=== PATIENT | female | born 1980 | race American Indian/Alaskan Native ===

== ENCOUNTER 2016-09-13 12:56 | Emergency (ER) | payer OTHER ==
[2016-09-13 13:19] VITALS: BP 130/92
[2016-09-13] MEDS ORDERED: Sodium Chloride 0.9% 10 ML Syringe FLUSH PRN (13:35)
--- NOTE | 2016-09-13 14:48 | US ---
First trimester obstetrical ultrasound: Multiple real-time images were obtained transvaginally. Dates: LMP: ? Current ultrasound: JAQUELINE 05/04/17, gestational age 6 weeks 5 days Single intrauterine gestation is seen. Amniotic fluid volume is normal. pole is seen but no heart activity is identified. Maternal ovaries are felt to be unremarkable. No subchorionic hemorrhage is seen at this time. Measurements: Gestational sac: 1.35 cm - 5 weeks 4 days [place]-rump length: 0.75 cm - 6 weeks 5 days Impression: 1. Single intrauterine gestation. Dates as noted above. 2. No heart activity is seen. Heart activity should be seen by this time and findings most likely due to nonviable although a repeat study recommended in 11 days if patient does not miscarry to confirm nonviable . Diagnostic code #3
--- NOTE | 2016-09-13 15:23 | EDM.PDOC ---
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 She is 8 weeks gestation. She is and AB2. She is considered high risk because of not enough amniotic fluid with her last pregnancies. She had some clots today when she was in the shower. She had some HCGs that were going down and a questionable US. Her OB doctor is Dr Mcknight in [place]. She denies fever, chills, cough, nausea, vomiting or dysuria. 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 Social & Family History - Tobacco Use Smoking Status *Q: Never Smoker - Caffeine Use Caffeine Use: Reports: Coffee - Recreational Drug Use Recreational Drug Use: No ED ROS GENERAL - Review of Systems Review Of Systems: See Below Constitutional: Reports: No Symptoms HEENT: Reports: No Symptoms Respiratory: Reports: No Symptoms Cardiovascular: Reports: No Symptoms Endocrine: Reports: No Symptoms GI/Abdominal: Reports: Abdominal Pain : Reports: Other (Bleeding and cramping) ED EXAM, RENAL/ - Physical Exam Exam: See Below Exam Limited By: No Limitations General Appearance: Alert, No Apparent Distress Ears: Normal External Exam Nose: Normal Inspection Head: Atraumatic, Normocephalic Neck: Normal Inspection Respiratory/Chest: No Respiratory Distress, Lungs Clear, Normal Breath Sounds Cardiovascular: Regular Rate, Rhythm, No Edema, No Murmur GI/Abdominal: Soft, Non-Tender, No Organomegaly, No Mass (Female) Exam: Other (Cervical os is closed. There is mild amount of dark blood.) Extremities: Normal Inspection Course - Vital Signs Last Recorded V/S: Last Vital Signs Temp 97.2 F 09/13/16 13:16 Pulse 60 09/13/16 13:16 Resp 16 09/13/16 13:16 BP 130/92 H 09/13/16 13:16 Pulse Ox 98 09/13/16 13:16 - Orders/Labs/Meds Orders: Active Orders 24 hr Category Date Time Status Peripheral IV Care [RC] . DIRECTED Care 09/13/16 13:35 Active ABO/RH TYPE [BBK] Stat Lab 09/13/16 13:45 Results PATIENT RETYPE [BBK] Stat Lab 09/13/16 13:45 Results Sodium Chloride 0.9% [Saline Flush] Med 09/13/16 13:35 Active 10 ml FLUSH ASDIRECTED PRN Peripheral IV Insertion Adult [OM.PC] Stat Oth 09/13/16 13:35 Ordered Medication Orders Sodium Chloride (Saline Flush) 10 ml FLUSH ASDIRECTED PRN PRN Reason: Keep Vein Open Last Admin: 09/13/16 14:36 Dose: 10 ml Labs: Laboratory Tests 09/13/16 09/13/16 09/13/16 Range/Units 13:45 13:45 13:45 WBC 6.10 (3.98-10.04) K/mm3 RBC 4.63 (3.98-5.22) M/mm3 Hgb 14.0 (11.2-15.7) gm/L Hct 42.1 (34.1-44.9) % MCV 90.9 (79.4-94.8) fl MCH 30.2 (25.6-32.2) pg MCHC 33.3 (32.2-35.5) g/dl RDW Std Deviation 38.8 (36.4-46.3) fL Plt Count 363 (182-369) K/mm3 MPV 9.2 L (9.4-12.3) fl Neut % (Auto) 63.2 (34.0-71.1) % Lymph % (Auto) 22.6 (19.3-51.7) % [place] % (Auto) 10.2 (4.7-12.5) % Eos % (Auto) 3.6 (0.7-5.8) Baso % (Auto) 0.2 (0.1-1.2) % Neut # (Auto) 3.86 (1.56-6.13) K/mm3 Lymph # (Auto) 1.38 (1.18-3.74) K/mm3 [place] # (Auto) 0.62 H (0.24-0.36) K/mm3 Eos # (Auto) 0.22 (0.04-0.36) K/mm3 Baso # (Auto) 0.01 (0.01-0.08) K/mm3 HCG, Quant 8595.0 mIU/mL Blood Type O POSITIVE Meds: Medications Generic Name Dose Route Start Last Admin Trade Name Freq PRN Reason Stop Dose Admin Sodium Chloride 10 ml 09/13/16 13:35 09/13/16 14:36 Saline Flush FLUSH 10 ml ASDIRECTED PRN Administration Keep Vein Open - Re-Assessments/Exams Free Text/Narrative Re-Assessment/Exam: 09/13/16 15:21 I ordered an IV saline lock, labs, and an US. Her CBC looks good. Her quant HCG is 8595. She is O positive. Her US shows single intrauterine gestation. Dates are 6 weeks 5 days. No heart activity is seen. Heart activity should be seen by this time and findings most likely due to nonviable although a repeat study recommended in 11 days if patient does not miscarry to confirm nonviable . 09/13/16 15:41 Her vaginal exam shows a closed os. There is mild amount of dark blood. Departure - Departure Time of Disposition: 15:45 Disposition: Home, Self-Care 01 Condition: good Clinical Impression: Incomplete - Discharge Information Referrals: Eugene Mcknight MD [Primary Care Provider] - 1 Week Forms: ED Department Discharge Additional Instructions: There is no heart beat at this time. It appears you are having a miscarrage. Follow up this week with Dr Mcknight. Please return if you are worse. - My Orders Last 24 Hours: My Active Orders 09/13/16 13:35 Peripheral IV Care [RC] . DIRECTED Sodium Chloride 0.9% [Saline Flush] 10 ml FLUSH ASDIRECTED PRN Peripheral IV Insertion Adult [OM.PC] Stat 09/13/16 13:45 ABO/RH TYPE [BBK] Stat PATIENT RETYPE [BBK] Stat - Assessment/Plan Last 24 Hours: My Active Orders 09/13/16 13:35 Peripheral IV Care [RC] . DIRECTED Sodium Chloride 0.9% [Saline Flush] 10 ml FLUSH ASDIRECTED PRN Peripheral IV Insertion Adult [OM.PC] Stat 09/13/16 13:45 ABO/RH TYPE [BBK] Stat PATIENT RETYPE [BBK] Stat
== END 2016-09-13 15:50 | disposition home or self-care (01) ==
LOC: JD.ED 12:56
DX: O03.4 Incomplete spontaneous abortion without complication (principal); I10 Essential (primary) hypertension; Z3A.01 Less than 8 weeks gestation of pregnancy
CPT/HCPCS: 36415; 76817; 84702; 85025; 86900; 86901; 99284; J7050; 99283

== ENCOUNTER 2020-10-26 11:48 | Emergency (ER) | payer OTHER ==
[2020-10-26 12:00] VITALS: BP 128/78; PULSE 67
[2020-10-26] MEDS ORDERED: Ondansetron 4 MG/2 ML SDV IVPUSH ONE (12:14)
[2020-10-26] MEDS ORDERED: Sodium Chloride 0.9% 10 ML Syringe FLUSH PRN ×2 (12:14→13:34)
[2020-10-26] MEDS ORDERED: Sodium Chloride 0.9% 1,000 ML IV SCH (12:15)
--- NOTE | 2020-10-26 12:21 | EDM.PDOC ---
ED HPI GENERAL MEDICAL PROBLEM - General Chief Complaint: Abdominal Pain Stated Complaint: LOW RT ABDOMINAL PAIN Time Seen by Provider: 10/26/20 12:04 Source of Information: Reports: Patient, RN Notes Reviewed History Limitations: Reports: No Limitations - History of Present Illness INITIAL COMMENTS - FREE TEXT/NARRATIVE: Patient is a 40-year-old female who presents to the ER for the evaluation of her right lower quadrant pain. Patient states that this started yesterday, seems to kind to come and go it is sharp and stabbing when the pain is at its worst, she does not really know anything that makes it better or worse. She took some Tylenol yesterday as she felt somewhat feverish, and states that this helped a little bit. She is not had pain like this before in the past. She still retains her appendix and gallbladder. She has had a history of a tummy tuck, and has a gastric balloon that was placed by a provider in [facility]. Also states that she had some blood in her stool yesterday, but it was bright red. She did not notice any sort of color to her fecal matter for today's purposes. She has not had any nausea/vomiting, cough or shortness of breath, or any issues with urination, furthermore no vaginal issues like bleeding or discharge. She does not think she can be as she does have an IUD. Primary care provider is Katya Valencia. She states that when she got up from bed this morning, when she stood up straight, this seemed to cause more pain. Pain started in her right lower quadrant, and has not radiated anywhere else. 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: , 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 Endocrine/Metabolic History: Reports: Obesity/BMI 30+ - Past Surgical History HEENT Surgical History: Reports: Tonsillectomy GI Surgical History: Reports: Other (See Below) Other GI Surgeries/Procedures: Tummy Tuck, Gastric Balloon Musculoskeletal Surgical History: Reports: Shoulder Surgery Social & Family History - Tobacco Use Tobacco Use Status *Q: Never Tobacco User - Caffeine Use Caffeine Use: Reports: Coffee - Recreational Drug Use Recreational Drug Use: No - Living Situation & Occupation Living situation: Reports: , with Spouse, with Family (5 kids) Occupation: Unemployed ED ROS GENERAL - Review of Systems Review Of Systems: Comprehensive ROS is negative, except as noted in HPI. ED EXAM, GI/ABD - Physical Exam Exam: See Below Exam Limited By: No Limitations General Appearance: Alert, WD/WN, No Apparent Distress Respiratory/Chest: No Respiratory Distress, Lungs Clear, Normal Breath Sounds, No Accessory Muscle Use, Chest Non-Tender Cardiovascular: Normal Peripheral Pulses, Regular Rate, Rhythm, No Edema GI/Abdominal Exam: Normal Bowel Sounds, Soft, No Distention, No Mass, Tender (RLQ mainly with direct palpation; pt states pain is worse when she stands straight up). No: Rigid, Rebound Extremities: Normal Inspection, Normal Capillary Refill Neurological: Alert, Oriented, Normal Cognition, No Motor/Sensory Deficits Psychiatric: Normal Affect, Normal Mood Skin Exam: Warm, Dry, Intact, Normal Color, No Rash Course - Vital Signs Last Recorded V/S: Last Vital Signs Temp 97.4 F 10/26/20 11:57 Pulse 67 10/26/20 11:57 Resp 16 10/26/20 11:57 BP 128/78 10/26/20 11:57 Pulse Ox 98 10/26/20 11:57 - Orders/Labs/Meds Orders: Active Orders 24 hr Category Date Time Status Peripheral IV Care [RC] . DIRECTED Care 10/26/20 12:15 Ordered Abdomen Pelvis w Cont [CT] Stat Exams 10/26/20 12:14 Ordered Sodium Chloride 0.9% [Normal Saline] 1,000 ml Med 10/26/20 12:15 Ordered IV ASDIRECTED Sodium Chloride 0.9% [Saline Flush] Med 10/26/20 12:14 Ordered 10 ml FLUSH ASDIRECTED PRN Sodium Chloride 0.9% [Saline Flush] Med 10/26/20 13:34 Active 10 ml FLUSH ONETIME PRN Peripheral IV Insertion Adult [OM.PC] Stat Oth 10/26/20 12:14 Ordered Medication Orders Sodium Chloride (Normal Saline) 1,000 mls @ 999 mls/hr IV ASDIRECTED JAME Last Admin: 10/26/20 12:33 Dose: 999 mls/hr Documented by: EZEKIEL Sodium Chloride (Sodium Chloride 0.9% 10 Ml Syringe) 10 ml FLUSH ASDIRECTED PRN PRN Reason: Keep Vein Open Last Admin: 10/26/20 12:33 Dose: 10 ml Documented by: EZEKIEL Sodium Chloride (Sodium Chloride 0.9% 10 Ml Syringe) 10 ml FLUSH ONETIME PRN PRN Reason: IV FLUSH Last Admin: 10/26/20 13:42 Dose: 10 ml Documented by: EYAD Labs: Laboratory Tests 10/26/20 10/26/20 10/26/20 Range/Units 11:59 11:59 11:59 WBC 8.86 (3.98-10.04) K/mm3 RBC 4.56 (3.98-5.22) M/mm3 Hgb 14.2 (11.2-15.7) gm/dl Hct 41.9 (34.1-44.9) % MCV 91.9 (79.4-94.8) fl MCH 31.1 (25.6-32.2) pg MCHC 33.9 (32.2-35.5) g/dl RDW Std Deviation 47.6 H (36.4-46.3) fL Plt Count 323 (182-369) K/mm3 MPV 9.3 L (9.4-12.3) fl Neut % (Auto) 70.9 (34.0-71.1) % Lymph % (Auto) 20.1 (19.3-51.7) % [place] % (Auto) 6.9 (4.7-12.5) % Eos % (Auto) 1.9 (0.7-5.8) Baso % (Auto) 0.1 (0.1-1.2) % Neut # (Auto) 6.28 H (1.56-6.13) K/mm3 Lymph # (Auto) 1.78 (1.18-3.74) K/mm3 [place] # (Auto) 0.61 H (0.24-0.36) K/mm3 Eos # (Auto) 0.17 (0.04-0.36) K/mm3 Baso # (Auto) 0.01 (0.01-0.08) K/mm3 Sodium 143 (136-145) mEq/L Potassium 4.0 (3.5-5.1) mEq/L Chloride 109 H (98-107) mEq/L Carbon Dioxide 26 (21-32) mEq/L Anion Gap 12.0 (5-15) BUN 13 (7-18) mg/dL Creatinine 0.8 (0.55-1.02) mg/dL Est Cr Clr Drug Dosing 92.72 mL/min Estimated GFR (MDRD) > 60 (>60) mL/min BUN/Creatinine Ratio 16.3 (14-18) Glucose 97 (70-99) mg/dL Calcium 8.7 (8.5-10.1) mg/dL Total Bilirubin 0.2 (0.2-1.0) mg/dL AST 30 (15-37) U/L ALT 67 H (14-59) U/L Alkaline Phosphatase 93 (46-116) U/L C-Reactive Protein <0.2 (<1.0) mg/dL Total Protein 6.8 (6.4-8.2) g/dl Albumin 3.9 (3.4-5.0) g/dl Globulin 2.9 gm/dL Albumin/Globulin Ratio 1.3 (1-2) Lipase 111 (73-393) U/L Urine Color (Yellow) Urine Appearance (Clear) Urine pH (5.0-8.0) Ur Specific [place] (1.005-1.030) Urine Protein (Negative) Urine Glucose (UA) (Negative) Urine Ketones (Negative) Urine Occult Blood (Negative) Urine Nitrite (Negative) Urine Bilirubin (Negative) Urine Urobilinogen (0.2-1.0) Ur Leukocyte Esterase (Negative) Urine RBC (0-5) /hpf Urine WBC (0-5) /hpf Ur Squamous Epith Cells (0-5) /hpf Urine Bacteria (FEW) /hpf Urine Mucus (FEW) /hpf Urine HCG, Qual Negative (NEGATIVE) 10/26/20 Range/Units 13:20 WBC (3.98-10.04) K/mm3 RBC (3.98-5.22) M/mm3 Hgb (11.2-15.7) gm/dl Hct (34.1-44.9) % MCV (79.4-94.8) fl MCH (25.6-32.2) pg MCHC (32.2-35.5) g/dl RDW Std Deviation (36.4-46.3) fL Plt Count (182-369) K/mm3 MPV (9.4-12.3) fl Neut % (Auto) (34.0-71.1) % Lymph % (Auto) (19.3-51.7) % [place] % (Auto) (4.7-12.5) % Eos % (Auto) (0.7-5.8) Baso % (Auto) (0.1-1.2) % Neut # (Auto) (1.56-6.13) K/mm3 Lymph # (Auto) (1.18-3.74) K/mm3 [place] # (Auto) (0.24-0.36) K/mm3 Eos # (Auto) (0.04-0.36) K/mm3 Baso # (Auto) (0.01-0.08) K/mm3 Sodium (136-145) mEq/L Potassium (3.5-5.1) mEq/L Chloride (98-107) mEq/L Carbon Dioxide (21-32) mEq/L Anion Gap (5-15) BUN (7-18) mg/dL Creatinine (0.55-1.02) mg/dL Est Cr Clr Drug Dosing mL/min Estimated GFR (MDRD) (>60) mL/min BUN/Creatinine Ratio (14-18) Glucose (70-99) mg/dL Calcium (8.5-10.1) mg/dL Total Bilirubin (0.2-1.0) mg/dL AST (15-37) U/L ALT (14-59) U/L Alkaline Phosphatase (46-116) U/L C-Reactive Protein (<1.0) mg/dL Total Protein (6.4-8.2) g/dl Albumin (3.4-5.0) g/dl Globulin gm/dL Albumin/Globulin Ratio (1-2) Lipase (73-393) U/L Urine Color Yellow (Yellow) Urine Appearance Clear (Clear) Urine pH 7.0 (5.0-8.0) Ur Specific [place] 1.020 (1.005-1.030) Urine Protein Negative (Negative) Urine Glucose (UA) Negative (Negative) Urine Ketones Negative (Negative) Urine Occult Blood Negative (Negative) Urine Nitrite Negative (Negative) Urine Bilirubin Negative (Negative) Urine Urobilinogen 0.2 (0.2-1.0) Ur Leukocyte Esterase Negative (Negative) Urine RBC 0-5 (0-5) /hpf Urine WBC 0-5 (0-5) /hpf Ur Squamous Epith Cells 0-5 (0-5) /hpf Urine Bacteria Few (FEW) /hpf Urine Mucus Few (FEW) /hpf Urine HCG, Qual (NEGATIVE) Meds: Medications Generic Name Dose Route Start Last Admin Trade Name Scar PRN Reason Stop Dose Admin Sodium Chloride 1,000 mls @ 999 mls/hr 10/26/20 12:15 10/26/20 12:33 Normal Saline IV 999 mls/hr ASDIRECTED JAME Administration Sodium Chloride 10 ml 10/26/20 12:14 10/26/20 12:33 Sodium Chloride 0.9% 10 Ml Syringe FLUSH 10 ml ASDIRECTED PRN Administration Keep Vein Open Sodium Chloride 10 ml 10/26/20 13:34 10/26/20 13:42 Sodium Chloride 0.9% 10 Ml Syringe FLUSH 10 ml ONETIME PRN Administration IV FLUSH Discontinued Medications Generic Name Dose Route Start Last Admin Trade Name Scar PRN Reason Stop Dose Admin Diatrizoate Meglum/Diatrizoate Sod 120 ml 10/26/20 13:34 10/26/20 13:42 Diatrizoate Meglumine/Diatrizoate Sodium 37% 120 Ml Bottle PO 10/26/20 13:35 30 ml ONETIME ONE Administration Hydromorphone HCl 0.5 mg 10/26/20 12:36 10/26/20 12:43 Hydromorphone 0.5 Mg/0.5 Ml Syringe IVPUSH 10/26/20 12:37 0.5 mg ONETIME ONE Administration Iopamidol 50 ml 10/26/20 13:34 10/26/20 13:42 Iopamidol 612 Mg/Ml 50 Ml Sdv IVPUSH 10/26/20 13:35 50 ml ONETIME ONE Administration Iopamidol 100 ml 10/26/20 13:34 10/26/20 13:42 Iopamidol 612 Mg/Ml 100 Ml Bottle IVPUSH 10/26/20 13:35 100 ml ONETIME ONE Administration Metoclopramide HCl 10 mg 10/26/20 14:33 10/26/20 14:37 Metoclopramide 10 Mg/2 Ml Sdv IVPUSH 10/26/20 14:34 10 mg ONETIME ONE Administration Ondansetron HCl 4 mg 10/26/20 12:14 10/26/20 12:33 Ondansetron 4 Mg/2 Ml Sdv IVPUSH 10/26/20 12:15 4 mg ONETIME ONE Administration - Re-Assessments/Exams Free Text/Narrative Re-Assessment/Exam: 10/26/20 12:19 Patient presents to the ER for her right lower quadrant pain, as she still retains her appendix, we will go ahead and get a CT of her abdomen, along with the baseline labs. Patient states that she was okay for pain management and is not requesting pain meds at this time. 10/26/20 14:32 Patient's labs are unremarkable, urinalysis is also negative for any sign of infection, patient is not . CT was also without acute findings. Patient does have a gastric balloon within her stomach, that appears to be within the correct placement. Patient states she is still feeling somewhat nauseous, and did have one episode of vomiting while in the ER. We will go ahead and give her 10 mg of Reglan IV to see if this helps relieve some of her nausea. 10/26/20 15:14 Patient was reassessed at bedside notes that her nausea is much better with the Reglan. We will go ahead and discharge her home with oral medications for Reglan and strict return precautions if things do not seem to be getting much better. Departure - Departure Time of Disposition: 14:35 Disposition: Home, Self-Care 01 Condition: Good Clinical Impression: Abdominal pain Qualifiers: Abdominal location: right lower quadrant Qualified Code(s): R10.31 - Right lower quadrant pain - Discharge Information *PRESCRIPTION DRUG MONITORING PROGRAM REVIEWED*: No *COPY OF PRESCRIPTION DRUG MONITORING REPORT IN PATIENT ASHLYN: No Prescriptions: Metoclopramide HCl 10 mg PO QID PRN #20 tablet PRN Reason: Nausea Instructions: Abdominal Pain, Adult, [id number] Referrals: PCP,None [Primary Care Provider] - Forms: ED Department Discharge Additional Instructions: You were evaluated in the ER today for your right lower abdominal pain. Laboratory evaluation and an abdomen pelvis CT was performed at today's visit, and everything was unremarkable for acute findings. You are not suffering from appendicitis at today's visit, nor do have any other acute bacterial infections that would be the cause of your pain. You were still feeling quite nauseous while being in the ER, and have been given a prescription for nausea meds, for ongoing nausea management. Over the next few days, I recommend you stick to more of a clear liquid diet and advance to a bland diet as tolerated to see if this helps relieve some of your nausea and abdominal discomfort. You may use 600 mg ibuprofen or 500 mg Tylenol every 6 hours as needed for ongoing pain and discomfort. Do not exceed 4000 mg Tylenol or 3200 mg ibuprofen in a 24-hour time span. If you are not feeling much better, in roughly 24 to 48 hours, highly recommend you seek care for reevaluation. Do not hesitate to return to the ER however if your symptoms should change or worsen Sepsis Event Note (ED) - Evaluation Sepsis Screening Result: No Definite Risk - Focused Exam Vital Signs: Vital Signs Temp Pulse Resp BP Pulse Ox 10/26/20 11:57 97.4 F 67 16 128/78 98 - My Orders Last 24 Hours: My Active Orders 10/26/20 12:14 Abdomen Pelvis w Cont [CT] Stat Sodium Chloride 0.9% [Saline Flush] 10 ml FLUSH ASDIRECTED PRN Peripheral IV Insertion Adult [OM.PC] Stat 10/26/20 12:15 Peripheral IV Care [RC] . DIRECTED Sodium Chloride 0.9% [Normal Saline] 1,000 ml IV ASDIRECTED 10/26/20 13:34 Sodium Chloride 0.9% [Saline Flush] 10 ml FLUSH ONETIME PRN - Assessment/Plan Last 24 Hours: My Active Orders 10/26/20 12:14 Abdomen Pelvis w Cont [CT] Stat Sodium Chloride 0.9% [Saline Flush] 10 ml FLUSH ASDIRECTED PRN Peripheral IV Insertion Adult [OM.PC] Stat 10/26/20 12:15 Peripheral IV Care [RC] . DIRECTED Sodium Chloride 0.9% [Normal Saline] 1,000 ml IV ASDIRECTED 10/26/20 13:34 Sodium Chloride 0.9% [Saline Flush] 10 ml FLUSH ONETIME PRN
[2020-10-26] MEDS ORDERED: HYDROmorphone 0.5 MG/0.5 ML Syringe IVPUSH ONE (12:36)
[2020-10-26] MEDS ORDERED: Iopamidol 612 MG/ML 100 ML Bottle IVPUSH ONE (13:34)
[2020-10-26] MEDS ORDERED: Diatrizoate Meglumine/Diatrizoate Sodium 37% 120 ML Bottle PO ONE (13:34)
[2020-10-26] MEDS ORDERED: Iopamidol 612 MG/ML 50 ML SDV IVPUSH ONE (13:34)
[2020-10-26] MEDS ORDERED: Metoclopramide 10 MG/2 ML SDV IVPUSH ONE (14:33)
--- NOTE | 2020-10-27 11:57 | CT ---
CT abdomen and pelvis Technique: Multiple axial sections were obtained from above the dome of the diaphragm inferiorly through the pubic symphysis. Intravenous and oral contrast was utilized. Delayed images were obtained to the bladder. Reconstructed coronal and sagittal images were obtained. Comparison: Prior abdominal x-ray of 10/19/11. Findings: Visualized lung bases are clear. Liver shows no focal abnormality. Gallbladder contains no calcified gallstone. Spleen appears within normal limits. Large inflated balloon is seen within the stomach measuring up to 11 cm. Kidneys show symmetric contrast enhancement. Pancreas is within normal limits. Abdominal aorta shows no aneurysm. No retroperitoneal adenopathy or mesenteric abnormalities are seen. No pelvic mass or adenopathy is seen. IUD is present within the uterus. Appendix is seen and is normal in size. No free fluid or inflammatory change is seen. Delayed images show contrast within the distal ureter and within the bladder. Bone window settings were reviewed which show no acute osseous abnormality. Impression: 1. Large balloon is seen within the stomach. 2. IUD noted within the uterus. 3. Nothing acute is otherwise seen on CT study of the abdomen and pelvis. Diagnostic code #2 I agree with preliminary report from [facility], finalized on 10/26/20, 3:14 PM CDT, code 1
== END 2020-10-26 15:23 | disposition home or self-care (01) ==
LOC: JD.ED 11:48
DX: R10.31 Right lower quadrant pain (principal); I10 Essential (primary) hypertension; E66.9 Obesity, unspecified; Z68.34 Body mass index [BMI] 34.0-34.9, adult; Z88.5 Allergy status to narcotic agent; Z88.1 Allergy status to other antibiotic agents
CPT/HCPCS: 36415; 74177; 80053; 81001; 81025; 83690; 85025; 86140; 96374; 96375; 99284; J1170; J2405; J2765; J7030; Q9963; Q9967

== ENCOUNTER 2021-04-26 15:38 | Emergency (ER) | payer OTHER ==
[2021-04-26 16:03] VITALS: PULSE 98
[2021-04-26 18:30] VITALS: BP 134/99
== END 2021-04-26 18:05 | disposition home or self-care (01) ==
LOC: JD.ED 15:38
DX: J10.1 Influenza due to other identified influenza virus with other respiratory manifestations (principal); I10 Essential (primary) hypertension; E66.9 Obesity, unspecified; Z68.33 Body mass index [BMI] 33.0-33.9, adult; Z88.1 Allergy status to other antibiotic agents; Z88.8 Allergy status to other drugs, medicaments and biological substances; Z20.822 Contact with and (suspected) exposure to COVID-19
CPT/HCPCS: 71045; 71045-26; 87804; 87807; 99283-25; 99284; U0002

== ENCOUNTER 2021-09-12 10:22 | Emergency (ER) | payer OTHER ==
[2021-09-12 10:35] VITALS: BP 122/110; PULSE 70
[2021-09-12] MEDS ORDERED: Acetaminophen 325 MG Tab PO ONE (10:41)
== END 2021-09-12 12:16 | disposition home or self-care (01) ==
LOC: JD.ED 10:22
DX: R51.9 Headache, unspecified (principal); I10 Essential (primary) hypertension; E66.9 Obesity, unspecified; Z68.30 Body mass index [BMI] 30.0-30.9, adult; Z88.1 Allergy status to other antibiotic agents; Z86.16 Personal history of COVID-19; Z79.899 Other long term (current) drug therapy; Z88.8 Allergy status to other drugs, medicaments and biological substances
CPT/HCPCS: 70450; 99284; A9270

== ENCOUNTER 2021-09-27 22:47 | Emergency (ER) | payer OTHER ==
[2021-09-27 23:02] VITALS: BP 131/90; PULSE 65
[2021-09-27] MEDS ORDERED: HYDROmorphone 1 MG/ML Syringe IVPUSH STA (23:21)
[2021-09-27] MEDS ORDERED: Ondansetron 4 MG/2 ML SDV IVPUSH ONE (23:21)
[2021-09-27] MEDS ORDERED: Sodium Chloride 0.9% 1,000 ML IV SCH (23:30)
== END 2021-09-28 06:00 | disposition home or self-care (01) ==
LOC: JD.ED 22:47
DX: R10.11 Right upper quadrant pain (principal); I10 Essential (primary) hypertension; Z86.16 Personal history of COVID-19; Z88.1 Allergy status to other antibiotic agents; Z88.8 Allergy status to other drugs, medicaments and biological substances
CPT/HCPCS: 36415; 74177; 76705; 80053; 81001; 81025; 83690; 85007; 85027; 96361; 96374; 96375; 99284; J1170; J2405; J7030

== ENCOUNTER 2024-02-22 13:07 | Emergency (ER) | payer OTHER ==
[2024-02-22 13:25] VITALS: BP 141/95; PULSE 71
[2024-02-22 13:59] LABS: BASOPHILS PERCENT AUTO 0.2 % (0.0-1.0); EOSINOPHILS ABSOLUTE AUTO 0.2 K/mm3 (0.0-0.4); HEMOGLOBIN 14.3 gm/dl (12.0-16.0); IMMATURE GRAN ABSOLUTE AUTO 0.02 K/mm3 (0.00-0.05); IMMATURE GRAN PERCENT AUTO 0.2 % (0.0-0.4); LYMPHOCYTES ABSOLUTE AUTO 1.9 K/mm3 (1.0-4.8); LYMPHOCYTES PERCENT AUTO 22.5 % (24.0-44.0); MEAN CORPUSCULAR HEMOGLOBIN 29.1 pg (28.0-32.0); MEAN CORPUSCULAR HGB CONC 33.3 g/dl (32.0-36.0); MEAN CORPUSCULAR VOLUME 87.4 fl (83.0-99.0); MEAN PLATELET VOLUME 9.2 fl (9.4-12.3); MONOCYTES ABSOLUTE AUTO 0.5 K/mm3 (0.0-0.8); MONOCYTES PERCENT AUTO 6.3 % (0.0-8.0); NEUTROPHILS ABSOLUTE AUTO 5.9 K/mm3 (1.8-7.7); NEUTROPHILS PERCENT AUTO 68.8 % (41.0-71.0); PLATELET COUNT,PLT 277 K/mm3 (150-400); RED BLOOD CELL COUNT 4.92 M/mm3 (4.10-5.30); WHITE BLOOD CELL COUNT,WBC 8.58 K/mm3 (3.9-11.3)
[2024-02-22 14:23] LABS: PROTHROMBIN TIME 9.6 SECONDS (9.7-12.0)
[2024-02-22 14:24] LABS: PTT,PARTIAL THROMBOPLSTIN TIME 26.5 SECONDS (21.7-31.4)
[2024-02-22 14:26] LABS: INR < 0.93
[2024-02-22] MEDS: cefTRIAXone 2 GM in Sodium Chloride 0.9% 100 ML IV ONE (14:31)
[2024-02-22 14:38] LABS: A/G RATIO 1.1 (1-2); ALANINE AMINOTRANSFERASE,ALT 142 U/L (14-59); ALBUMIN 3.6 g/dl (3.4-5.0); ALKALINE PHOSPHATASE 96 U/L (46-116); ANION GAP 15.9 (5-15); ASPARTATE AMNIOTRANSFERASE,AST 43 U/L (15-37); BILIRUBIN TOTAL 0.5 mg/dL (0.2-1.0); BLOOD UREA NITROGEN,BUN 11 mg/dL (7-18); BUN/CREATININE RATIO 12.2 (14-18); C-REACTIVE PROTEIN 1.11 mg/dL (<0.30); CALCIUM 9.1 mg/dL (8.5-10.1); CARBON DIOXIDE,CO2 24 mEq/L (21-32); CHLORIDE,CL 109 mEq/L (98-107); CREATININE 0.9 mg/dL (0.55-1.02); EST CRCL DRUG DOSING (CG) 79.99 mL/min; ESTIMATED GFR 82 mL/min (>60); GLUCOSE RANDOM 110 mg/dL (70-99); MAGNESIUM 2.2 mg/dL (1.8-2.4); POTASSIUM,K 3.9 mEq/L (3.5-5.1); PROTEIN TOTAL,TP 6.9 g/dl (6.4-8.2); SODIUM,NA 145 mEq/L (136-145)
[2024-02-22 14:44] LABS: TROPONIN I HIGH SENSITIVITY < 4 pg/mL (<=51)
[2024-02-22] MEDS: cefTRIAXone 2 GM, Lidocaine 1% 4.2 ML IM ONE (14:55)
[2024-02-22] MEDS: Sodium Chloride 0.9% 1,000 ML IV SCH (15:46)
[2024-02-22] MEDS: Ketorolac 30 MG/ML SDV IVPUSH ONE (15:48)
[2024-02-22 16:09] LABS: CORONAVIRUS COVID-19 NAA NEGATIVE (NEGATIVE); INFLUENZA A NAA NEGATIVE (NEGATIVE); RESPIRATORY SYNCYTIAL VIR NAA NEGATIVE (NEGATIVE)
[2024-02-22] MEDS: Cefdinir 300 MG Cap PO ONE (17:30)
[2024-02-22] MEDS: Azithromycin 250 MG Tab PO STA (17:31)
== END 2024-02-22 17:35 | disposition home or self-care (01) ==
LOC: JD.ED 13:07
DX: H65.192 Other acute nonsuppurative otitis media, left ear (principal); I10 Essential (primary) hypertension; E66.9 Obesity, unspecified; Z86.16 Personal history of COVID-19; Z88.8 Allergy status to other drugs, medicaments and biological substances; Z79.2 Long term (current) use of antibiotics; Z79.84 Long term (current) use of oral hypoglycemic drugs; Z79.899 Other long term (current) drug therapy; Z68.33 Body mass index [BMI] 33.0-33.9, adult
CPT/HCPCS: 0241U; 36415; 71045; 80053; 83605; 83735; 83880; 84484; 85025; 85610; 85730; 86140; 93005; 96361; 96365; 96375; 99285; A9270; J0696; J1885; J3490; J7030; 93010; 99284